=== PATIENT | male | born 1945 | race African-American/Black ===

== ENCOUNTER → 2017-06-23 | Outpatient (CLI) | payer OTHER, MEDICARE | LOC: BHFA 09:15 | PROVIDERS: ATTEND Internal Medicine Cardiovascular Disease | DX: R00.1 Bradycardia, unspecified (principal); I34.0 Nonrheumatic mitral (valve) insufficiency; I07.1 Rheumatic tricuspid insufficiency; R55 Syncope and collapse ==

== ENCOUNTER → 2017-07-02 | Outpatient (CLI) | payer OTHER, MEDICARE | LOC: BHFA 13:30 | PROVIDERS: ATTEND Internal Medicine Cardiovascular Disease | DX: R00.1 Bradycardia, unspecified (principal) ==

== ENCOUNTER → 2017-07-08 | Outpatient (CLI) | payer OTHER, MEDICARE | LOC: BHLMT 13:30 | PROVIDERS: ATTEND Internal Medicine Cardiovascular Disease | DX: R00.1 Bradycardia, unspecified (principal); R55 Syncope and collapse; I34.0 Nonrheumatic mitral (valve) insufficiency; I07.1 Rheumatic tricuspid insufficiency | CPT/HCPCS: 78452; 93017; A9500 ==

== ENCOUNTER 2017-10-19 18:46 | Emergency (ER) | payer OTHER, MEDICARE ==
[2017-10-19 18:52] VITALS: RESP 18
[2017-10-19] MEDS ORDERED: NS 1,000 ML IV ONE (19:07)
--- NOTE | 2017-10-19 19:11 | EDPHY ---
H & P Stated Complaint: cough and fever x 4 days `` Time Seen by Provider: 10/19/17 19:00 HPI/ROS: CHIEF COMPLAINT: Fever and cough History by patient HISTORY OF PRESENT ILLNESS: 72-year-old man with history of hypertension complains of 4 days of persistent nonproductive cough and fever with shaking chills. He has been taking Coricidin and NyQuil with minimal relief. The cough is sometimes painful and "takes his breath away ". He denies any nausea, vomiting or diarrhea. He complains of a frontal headache along with a fever. He denies any runny nose or sinus congestion. He denies sore throat but says that his throat feels scratchy. He was recently on an airplane. He did get a flu shot this year. He denies any leg pain or swelling. REVIEW OF SYSTEMS: As in HPI, and all other systems reviewed and are negative Source: Patient - Personal History Current Tetanus/Diphtheria Vaccine: Yes Current Tetanus Diphtheria and Acellular Pertussis (TDAP): Yes - Medical/Surgical History Hx Asthma: No Hx Chronic Respiratory Disease: No Hx Diabetes: No Hx Cardiac Disease: No Hx Renal Disease: No Hx Cirrhosis: No Hx Alcoholism: No Hx HIV/AIDS: No Hx Splenectomy or Spleen Trauma: No Other PMH: HTN; hyperlipidemia; pre DM2; cataracts;. Chronic Back pain. Syncope. Cataract surg - Social History Smoking Status: Never smoked - Physical Exam Exam: General Appearance: Alert, nontoxic-appearing. Head: normocephalic, atraumatic Eyes: Pupils equal and round, reactive to light, no pallor or injection. Mouth: Mucous membranes moist. Respiratory: Normal, effort, lungs right greater than left crackles and rhonchi Cardiovascular: Regular rate and rhythm. S1, S2, no murmurs, gallops or rubs appreciated Gastrointestinal: Abdomen is soft and nontender, no masses, bowel sounds normal. Back: No CVA tenderness, no bony tenderness Neurological: Awake, alert and oriented x 3, no pronator drift, normal gait, no pronator drift Skin: Warm and dry, no rashes. Musculoskeletal: No deformities or tenderness. Extremities: full range of motion, no edema, DP2+ bilat Psychiatric: Patient has normal affect, there is no agitation. Constitutional: Initial Vital Signs Temperature (C) 38.1 C 10/19/17 18:47 Heart Rate 68 10/19/17 18:47 Respiratory Rate 18 10/19/17 18:47 Blood Pressure 149/72 H 10/19/17 18:47 O2 Sat (%) 96 10/19/17 18:47 O2 Delivery Mode Room Air Allergies/Adverse Reactions: lisinopril [Lisinopril] Adverse Reaction (Intermediate, Verified 10/16/14 11:34) Other-Enter Comments NSAIDS (Non-Steroidal Anti-Inflamma [Nsaids] Adverse Reaction (Unknown, Verified 10/16/14 11:34) Home Medications: Medication Instructions Recorded Amlodipine Besylate 08/19/14 Aspirin 81mg (OTC) 08/19/14 Atorvastatin Calcium 08/19/14 Fish Oil 1000 mg (OTC) 08/19/14 Multi-Vitamin Daily 08/19/14 Omeprazole 08/19/14 Zeita 08/19/14 Oseltamivir Phosphate [Tamiflu 75 75 mg PO BID 5 Days cap 10/16/14 mg (RX)] Flomax 0.4 MG (*) 10/19/17 Medical Decision Making - Diagnostics Imaging Results: Imaging Impressions Chest X-Ray 10/19/17 19:07 Impression: Prominence of perihilar interstitial markings and peribronchial cuffing. Findings are nonspecific but can be seen with bronchitis, reactive airway disease, or viral process. Imaging: I viewed and interpreted images myself ED Course/Re-evaluation: 72-year-old man presents with fever and cough. Chest x-ray shows no acute pneumonia. Patient is hemodynamically stable without hypoxia. Labs are unremarkable except for creatinine which is just above the upper limit of normal. Patient was given L of IV saline emergency department. Flu test was sent and results are pending at time dictation. I suspect the patient likely has influenza however his illness has been going on for 5 days and so he is out of the window for treatment. I discussed this with the patient and his . We discussed home care and conservative measures. We also discussed return precautions and will return for any worsening or new concerns. I also discussed the elevated creatinine with him and recommending follow up with his primary care physician to have this rechecked again when he as well. - Data Points Laboratory Results: Laboratory Results 10/19/17 19:10 10/19/17 19:10 10/19/17 10/19/17 10/19/17 19:10 19:10 18:59 WBC 4.79 10^3/uL 10^3/uL (3.80-9.50) RBC 5.29 10^6/uL 10^6/uL (4.40-6.38) Hgb 14.3 g/dL g/dL (13.7-17.5) Hct 43.8 % % (40.0-51.0) MCV 82.8 fL fL (81.5-99.8) MCH 27.0 pg L pg (27.9-34.1) MCHC 32.6 g/dL g/dL (32.4-36.7) RDW 14.5 % % (11.5-15.2) Plt Count 196 10^3/uL 10^3/uL (150-400) MPV 8.9 fL fL (8.7-11.7) Neut % (Auto) 51.4 % % (39.3-74.2) Lymph % (Auto) 33.6 % % (15.0-45.0) [place] % (Auto) 12.9 % % (4.5-13.0) Eos % (Auto) 1.3 % % (0.6-7.6) Baso % (Auto) 0.6 % % (0.3-1.7) Nucleat RBC Rel Count 0.0 % % (0.0-0.2) Absolute Neuts (auto) 2.46 10^3/uL 10^3/uL (1.70-6.50) Absolute Lymphs (auto) 1.61 10^3/uL 10^3/uL (1.00-3.00) Absolute Monos (auto) 0.62 10^3/uL 10^3/uL (0.30-0.80) Absolute Eos (auto) 0.06 10^3/uL 10^3/uL (0.03-0.40) Absolute Basos (auto) 0.03 10^3/uL 10^3/uL (0.02-0.10) Absolute Nucleated RBC 0.00 10^3/uL 10^3/uL (0-0.01) Immature Gran % 0.2 % % (0.0-1.1) Immature Gran # 0.01 10^3/uL 10^3/uL (0.00-0.10) Sodium 144 mEq/L mEq/L (134-144) Potassium 4.0 mEq/L mEq/L (3.5-5.2) Chloride 103 mEq/L mEq/L (97-110) Carbon Dioxide 26 mEq/l mEq/l (22-31) Anion Gap 15 mEq/L mEq/L (8-16) BUN 14 mg/dL mg/dL (7-23) Creatinine 1.4 mg/dL H mg/dL (0.7-1.3) Estimated GFR 50 Glucose 100 mg/dL mg/dL (70-100) Calcium 8.5 mg/dL mg/dL (8.5-10.4) Nasal Influenza A PCR Pending Nasal Influenza B PCR Pending Medications Given: Discontinued Medications Acetaminophen (Tylenol) 1,000 mg PO EDNOW ONE Stop: 10/19/17 19:40 Last Admin: 10/19/17 19:42 Dose: 1,000 mg Sodium Chloride (Ns) 1,000 mls @ 0 mls/hr IV ONCE ONE; Wide Open PRN Reason: Protocol Stop: 10/19/17 19:08 Last Admin: 10/19/17 19:32 Dose: 1,000 mls Departure - Departure Disposition: Home, Routine, Self-Care Clinical Impression: Influenza-like illness, Elevated serum creatinine Condition: Good Instructions: Influenza (ED) Additional Instructions: You were seen by Dr. Syl Henderson today. You may take acetaminophen (Tylenol) for fever, headache and body aches. Rest and drink plenty of fluids. Please have your regular doctor recheck your creatinine (kidney function) in the next week to 10 days as a was slightly elevated today. Return for any worsening or new concerns. Referrals: Mi Gonzalez MD [Primary Care Provider] - As per Instructions
[2017-10-19 19:22] LABS: PLATELET COUNT 196 10^3/uL (150-400)
[2017-10-19] MEDS ORDERED: ACETAMINOPHEN 500 MG TAB PO ONE (19:39)
[2017-10-19 19:44] VITALS: O2SAT 95
[2017-10-19 20:23] VITALS: BP 138/74; PULSE 60; TEMP 100.4
== END 2017-10-19 20:30 | disposition home or self-care (01) ==
LOC: CED 18:46
DX: J11.1 Influenza due to unidentified influenza virus with other respiratory manifestations (principal); R94.4 Abnormal results of kidney function studies; I10 Essential (primary) hypertension; E86.9 Volume depletion, unspecified; Z79.82 Long term (current) use of aspirin
CPT/HCPCS: 71020-PO; 80048-PO; 85025-PO

== ENCOUNTER → 2017-11-25 | Outpatient (CLI) | payer OTHER, MEDICARE | LOC: BRMIMAGING 08:31 | PROVIDERS: ATTEND Internal Medicine | DX: R11.0 Nausea (principal); R79.89 Other specified abnormal findings of blood chemistry | CPT/HCPCS: 76705-PO ==

== ENCOUNTER → 2018-09-07 | Outpatient (CLI) | payer OTHER, MEDICARE | LOC: BHFA 14:00 | PROVIDERS: ATTEND Internal Medicine Cardiovascular Disease | DX: I10 Essential (primary) hypertension (principal) ==